=== PATIENT | female | born 1995 | race Hispanic/Latino ===

== ENCOUNTER 2021-10-20 17:00 | Observation (INO) | payer BC ==
[~2021-10-20] VITALS: Ht 160 cm; Wt 88.5 kg
[2021-10-20 17:02] VITALS: BP 162/102
[2021-10-20 18:14] LABS: APPEARANCE,URINE SL CLOUDY (CLEAR); BILIRUBIN,URINE NEGATIVE (NEGATIVE); COLOR,URINE YELLOW (YELLOW); GLUCOSE, URINE (UA) NEGATIVE (NEGATIVE); KETONES,URINE NEGATIVE (NEGATIVE); LEUKOCYTE ESTERASE ,URINE TRACE (NEGATIVE); NITRATE,URINE POSITIVE (NEGATIVE); OCCULT BLOOD,URINE NEGATIVE (NEGATIVE); PROTEIN,URINE NEGATIVE (NEGATIVE); UROBILINOGEN,URINE 0.2 mg/dL (0.2-1.0)
[2021-10-20 18:23] LABS: BACTERIA,URINE Moderate /HPF (None Seen); CALCIUM OXALATE CRYSTALS,UR Rare /LPF (None Seen); RBC,URINE 0-1 /HPF (0-1)
[2021-10-20 18:24] LABS: SQUAMOUS EPITHELIAL CELL,UR Few /HPF (0-2)
[2021-10-20] MEDS ORDERED: CEFTRIAXONE 1G VIAL IM ONE (19:30)
[2021-10-20] MEDS ORDERED: LIDOCAINE HCL MPF 1% 5ML VIAL IM SCH (20:00)
[2021-10-20] MEDS ORDERED: LIDOCAINE HCL MPF 1% 5ML VIAL ONE (20:03)
== END 2021-10-20 20:40 | disposition home or self-care (01) ==
LOC: EDH 17:00 → LDH 17:01
PROVIDERS: ADMIT Obstetrics & Gynecology; ATTEND Obstetrics & Gynecology
DX: O10.913 Unspecified pre-existing hypertension complicating pregnancy, third trimester (principal); Z3A.36 36 weeks gestation of pregnancy
CPT/HCPCS: 96372 ×2; 59025; 87077; 87088; 87186; 81001; 76819; G0378 ×3; J0696; J3490

== ENCOUNTER 2021-10-26 10:56 | Observation (INO) | payer BC ==
[~2021-10-26] VITALS: Ht 160 cm; Wt 135.6 kg
[2021-10-26 10:57] VITALS: BP 165/105
[2021-10-26] MEDS ORDERED: LACTATED RINGERS 1000ML 1,000 ML IV PRN (11:30)
[2021-10-26 11:58] LABS: BASOPHILS % (AUTO) 0.2 % (0.0-5.0); EOSINOPHILS % (AUTO) 0.7 % (0.0-8.0); HEMATOCRIT 34.1 % (36-48); LYMPHOCYTES % (AUTO) 31.4 % (21.0-51.0); MEAN CORPUSCULAR HEMOGLOBIN 28.4 pg (27.0-33.0); MEAN CORPUSCULAR HGB CONC 32.8 g/dL (32.0-36.0); MEAN CORPUSCULAR VOLUME 86.3 fL (79-99); MONOCYTES % (AUTO) 6.6 % (3.0-13.0); NEUTROPHILS % (AUTO) 60.7 % (40.0-77.0); PLATELET COUNT (AUTO) 259 K/uL (130-400); RED BLOOD CELL COUNT(AUTO) 3.95 MIL/uL (4.00-5.50); RED CELL DISTRIBUTION WIDTH 15.9 % (11.0-15.5); WHITE BLOOD COUNT (AUTO) 10.3 K/uL (4.8-10.8)
[2021-10-26 12:05] LABS: CREATININE 0.6 mg/dL (0.5-1.5); POTASSIUM 4.2 mmol/L (3.5-5.1)
[2021-10-26 12:10] LABS: ALBUMIN 2.2 g/dL (3.5-5.0); INR 0.93 (0.85-1.15); PROTHROMBIN TIME 9.4 SEC (9.6-11.6); TOTAL PROTEIN, SERUM 6.2 g/dL (6.0-8.3); URIC ACID 6.6 mg/dL (2.6-7.2)
[2021-10-26 12:11] LABS: PARTIAL THROMBOPLASTIN TIME 24.9 SEC (26.3-35.5)
[2021-10-26 12:14] LABS: APPEARANCE,URINE CLEAR (CLEAR); BILIRUBIN,URINE NEGATIVE (NEGATIVE); COLOR,URINE YELLOW (YELLOW); GLUCOSE, URINE (UA) NEGATIVE (NEGATIVE); KETONES,URINE NEGATIVE (NEGATIVE); LEUKOCYTE ESTERASE ,URINE NEGATIVE (NEGATIVE); NITRATE,URINE NEGATIVE (NEGATIVE); OCCULT BLOOD,URINE NEGATIVE (NEGATIVE); PROTEIN,URINE NEGATIVE (NEGATIVE); UROBILINOGEN,URINE 0.2 mg/dL (0.2-1.0)
== END 2021-10-26 14:30 | disposition home or self-care (01) ==
LOC: EDH 10:56 → LDH 10:57
PROVIDERS: ADMIT Obstetrics & Gynecology; ATTEND Obstetrics & Gynecology
DX: O14.93 Unspecified pre-eclampsia, third trimester (principal); Z3A.37 37 weeks gestation of pregnancy
CPT/HCPCS: 59025; 96360; 96361; 84550; 80053; 85025; 85384; 85610; 85730; 81003; 36415; 76819; 76805; G0378 ×3; G0379; J7120; A4351

== ENCOUNTER 2021-10-30 17:19 | Inpatient (IN) | payer BC ==
[~2021-10-30] VITALS: Ht 160 cm; Wt 136.1 kg
[2021-10-30] MEDS ORDERED: NALOXONE HCL 0.4 MG/1 ML ML IV PRN (17:30)
[2021-10-30] MEDS ORDERED: MEPERIDINE-PF 25 MG/ML SYG IVP PRN (17:30)
[2021-10-30] MEDS ORDERED: LACTATED RINGERS 500 ML 500 ML IV PRN (17:30)
[2021-10-30] MEDS ORDERED: EPHEDRINE SULFATE 50 MG/ML AMPULE IVP PRN (17:30)
[2021-10-30 18:10] LABS: APPEARANCE,URINE CLOUDY (CLEAR); BILIRUBIN,URINE NEGATIVE (NEGATIVE); COLOR,URINE YELLOW (YELLOW); GLUCOSE, URINE (UA) NEGATIVE (NEGATIVE); KETONES,URINE 5 mg/dL (NEGATIVE); LEUKOCYTE ESTERASE ,URINE TRACE (NEGATIVE); NITRATE,URINE NEGATIVE (NEGATIVE); OCCULT BLOOD,URINE NEGATIVE (NEGATIVE); PH,URINE 6.5 (5.0-8.0); PROTEIN,URINE 30 mg/dL (NEGATIVE); UROBILINOGEN,URINE 0.2 mg/dL (0.2-1.0)
[2021-10-30] MEDS: LACTATED RINGERS 1000ML 1,000 ML IV PRN (18:22)
[2021-10-30 18:24] LABS: BACTERIA,URINE Many /HPF (None Seen); RBC,URINE None Seen /HPF (0-1); SQUAMOUS EPITHELIAL CELL,UR Many /HPF (0-2)
[2021-10-30 18:50] LABS: BASOPHILS % (AUTO) 0.1 % (0.0-5.0); EOSINOPHILS % (AUTO) 0.5 % (0.0-8.0); HEMATOCRIT 32.4 % (36-48); MEAN CORPUSCULAR HGB CONC 33.3 g/dL (32.0-36.0); MEAN CORPUSCULAR VOLUME 87.1 fL (79-99); MONOCYTES % (AUTO) 5.8 % (3.0-13.0); NEUTROPHILS % (AUTO) 61.3 % (40.0-77.0); PLATELET COUNT (AUTO) 240 K/uL (130-400); RED BLOOD CELL COUNT(AUTO) 3.72 MIL/uL (4.00-5.50); WHITE BLOOD COUNT (AUTO) 9.7 K/uL (4.8-10.8)
[2021-10-30 18:58] LABS: INR 0.93 (0.85-1.15); PROTHROMBIN TIME 9.4 SEC (9.6-11.6)
[2021-10-30 19:03] LABS: CREATININE 0.7 mg/dL (0.5-1.5); POTASSIUM 4.4 mmol/L (3.5-5.1)
[2021-10-30 19:19] LABS: ALBUMIN 2.1 g/dL (3.5-5.0); TOTAL PROTEIN, SERUM 5.9 g/dL (6.0-8.3)
[2021-10-30] MEDS ORDERED: MISOPROSTOL 25 MCG TAB PO ONE (20:09)
[2021-10-30] MEDS: MISOPROSTOL 25 MCG TAB VG PRN (20:09)
[2021-10-30] MEDS ORDERED: LABETALOL HCL 200 MG TABLET PO SCH (21:00)
[2021-10-31] MEDS ORDERED: MISOPROSTOL 25 MCG TAB PO ONE (00:07)
[2021-10-31] MEDS: MISOPROSTOL 25 MCG TAB VG PRN (00:07)
[2021-10-31] MEDS: LACTATED RINGERS 1000ML 1,000 ML IV PRN (01:26)
[2021-10-31] MEDS ORDERED: HYDRALAZINE 20MG/ML VIAL ONE (02:24)
[2021-10-31] MEDS ORDERED: HYDRALAZINE 20MG/ML VIAL IV ONE ×2 (02:30→04:00)
[2021-10-31] MEDS ORDERED: MAGNESIUM 4GM PREMIX 100ML 100 ML IV ONE (03:35)
[2021-10-31] MEDS ORDERED: MAGNESIUM SULFATE 40GM/1000ML 1,000 ML IV ONE (03:35)
[2021-10-31] MEDS ORDERED: CALCIUM GLUC 1GM/10ML VIAL IV PRN (04:00)
[2021-10-31] MEDS ORDERED: CEFAZOLIN SODIUM 1 GM VIAL IVP PRN (04:00)
[2021-10-31] MEDS ORDERED: OXYTOCIN-LR 20 UNITS/1000 ML 1,000 ML IV SCH (04:00)
[2021-10-31] MEDS ORDERED: MAGNESIUM 4GM PREMIX 100ML 100 ML IV PRN ×2 (04:00→08:30)
[2021-10-31] MEDS ORDERED: MAGNESIUM SULFATE 40GM/1000ML 1,000 ML IV PRN ×2 (04:00→08:30)
[2021-10-31] MEDS ORDERED: LACTATED RINGERS 1000ML 1,000 ML IV SCH ×2 (04:00→08:30)
[2021-10-31] MEDS ORDERED: CALDOLOR 800MG+NS 250ML 250 ML IV PRN (05:30)
[2021-10-31] MEDS ORDERED: LABE200T7 PO (05:31)
[2021-10-31] MEDS ORDERED: CITRIC ACID/SODIUM CITRATE 30 ML UDCUP ONE (06:57)
[2021-10-31] MEDS ORDERED: FENTANYL CITRATE PF 50 MCG/1 ML 2ML VIAL ONE (06:58)
[2021-10-31] MEDS ORDERED: MORPHINE PF 100MG/10ML AMP IV ONE (06:58)
[2021-10-31] MEDS ORDERED: OXYTOCIN 10 USP UNITS/ML ONE (07:37)
[2021-10-31] MEDS ORDERED: ONDANSETRON 4MG INJ ONE (07:38)
[2021-10-31] MEDS ORDERED: CITRIC ACID/SODIUM CITRATE 30 ML UDCUP PO SCH (08:00)
[2021-10-31] MEDS ORDERED: PHENYLEPHRINE HCL 10 MG/ML 1ML VIAL IV ONE (08:09)
[2021-10-31] MEDS ORDERED: PROMETHAZINE HCL 25 MG/ML 1ML AMPULE IM PRN (08:30)
[2021-10-31] MEDS ORDERED: DEXTROSE 5 %-0.45 % NACL 1,000 ML IV PRN (08:30)
[2021-10-31] MEDS ORDERED: OXYTOCIN-LR 20 UNITS/1000 ML 1,000 ML IV PRN (08:30)
[2021-10-31] MEDS ORDERED: CALCIUM GLUC 1GM/10ML VIAL IVPB PRN (08:30)
[2021-10-31] MEDS ORDERED: 0.9%NACL 10ML VIAL IVP PRN (08:30)
[2021-10-31] MEDS ORDERED: NALOXONE HCL 0.4 MG/1 ML ML IVP PRN ×2 (09:30)
[2021-10-31] MEDS ORDERED: DiphenhydrAMINE HCL 50 MG/ML VIAL IVP PRN (09:30)
[2021-10-31] MEDS ORDERED: EPHEDRINE SULFATE 50 MG/ML AMPULE IVP PRN (09:30)
[2021-10-31] MEDS ORDERED: LORATADINE 10 MG TABLET PO PRN (09:30)
[2021-10-31] MEDS ORDERED: KETOROLAC 30MG VIAL (30MG/ML) IV PRN (09:30)
[2021-10-31] MEDS ORDERED: ONDANSETRON 4MG INJ IVP PRN (09:30)
[2021-10-31] MEDS ORDERED: MEPERIDINE-PF 25 MG/ML SYG IV PRN (09:30)
[2021-10-31] MEDS: MEPERIDINE-PF 75 MG/ML SYG IM PRN (13:09)
[2021-10-31] MEDS: PROMETHAZINE HCL 25 MG/ML 1ML AMPULE IM PRN (13:10)
[2021-10-31] MEDS: CALDOLOR 800MG+NS 250ML 250 ML IV PRN ×2 (15:53→23:37)
[2021-11-01] MEDS: MEPERIDINE-PF 75 MG/ML SYG IM PRN (05:26)
[2021-11-01] MEDS: PROMETHAZINE HCL 25 MG/ML 1ML AMPULE IM PRN (05:27)
[2021-11-01 06:35] LABS: HEMATOCRIT 32.3 % (36-48); MEAN CORPUSCULAR HEMOGLOBIN 28.6 pg (27.0-33.0); MEAN CORPUSCULAR HGB CONC 32.5 g/dL (32.0-36.0); RED BLOOD CELL COUNT(AUTO) 3.67 MIL/uL (4.00-5.50); RED CELL DISTRIBUTION WIDTH 16.4 % (11.0-15.5)
[2021-11-01] MEDS ORDERED: ACETAMINOPHEN 500 MG TABLET PO PRN (08:30)
[2021-11-01] MEDS ORDERED: MEASLES/MUMPS/RUBELLA VACCINE, LIVE 0.5 ML/VIAL SQ SCH (08:30)
[2021-11-01] MEDS ORDERED: DIPHENHYDRAMINE HCL 25 MG CAPSULE PO PRN (08:30)
[2021-11-01] MEDS ORDERED: ACETAMINOPHEN WITH CODEINE 1 TAB TAB PO PRN (08:30)
[2021-11-01] MEDS ORDERED: HYDROCODONE/ACETAMINOPHEN 5/325 MG TAB PO PRN (08:30)
[2021-11-01] MEDS ORDERED: DIPH,PERTUSS(ACELL),TET VAC/PF 0.5 ML VIAL IM SCH (08:30)
[2021-11-01] MEDS ORDERED: LANOLIN 30GM OINTMENT TP PRN (08:30)
[2021-11-01] MEDS: LABETALOL HCL 200 MG TABLET PO SCH ×2 (09:12→20:55)
[2021-11-01 11:03] VITALS: BP 121/66
[2021-11-01 15:53] VITALS: BP 114/76
[2021-11-01] MEDS: SIMETHICONE 80 MG TAB.CHEW PO PRN ×2 (15:53→20:50)
[2021-11-01] MEDS ORDERED: PREN1TAB80 PO (16:19)
[2021-11-01 19:31] VITALS: BP 115/85
[2021-11-01] MEDS: DOCUSATE SODIUM 100 MG CAP PO SCH ×2 (20:50→21:00)
[2021-11-01] MEDS: IBUPROFEN 600 MG TABLET PO PRN (20:51)
[2021-11-01 23:32] VITALS: BP 106/53
[2021-11-02] MEDS: IBUPROFEN 600 MG TABLET PO PRN (03:54)
[2021-11-02 03:55] VITALS: BP 142/82
[2021-11-02 07:20] VITALS: BP 138/87
[2021-11-02] MEDS: LABETALOL HCL 200 MG TABLET PO SCH (08:54)
[2021-11-02] MEDS: DOCUSATE SODIUM 100 MG CAP PO SCH (08:55)
[2021-11-02] MEDS: SIMETHICONE 80 MG TAB.CHEW PO PRN (08:55)
[2021-11-02 12:11] VITALS: BP 119/80
[2021-11-02] MEDS ORDERED: DOCU-116 PO (13:16)
[2021-11-02] MEDS ORDERED: IBUP-2077 PO (13:17)
[2021-11-02] MEDS ORDERED: ACET-2079 PO (13:18)
== END 2021-11-02 14:25 | disposition home or self-care (01) | DRG 788 ==
LOC: LDH 17:19 → WSH 11-01 11:00
PROVIDERS: ADMIT Obstetrics & Gynecology; ATTEND Obstetrics & Gynecology
PROC: 10D00Z1 Extraction of Products of Conception, Low, Open Approach (ICD-10-PCS; principal; 2021-10-31 07:29)
DX: O11.4 Pre-existing hypertension with pre-eclampsia, complicating childbirth (principal); O99.214 Obesity complicating childbirth; Z3A.38 38 weeks gestation of pregnancy; Z37.0 Single live birth; E66.01 Morbid (severe) obesity due to excess calories
CPT/HCPCS: 36415; 59510; 76805; 80053; 81001; 84550; 85025; 85027; 85384; 85610; 85730; 86592; 86850; 86900; 86901; 87088; 87340; 90715; A4344; G0378; J0360; J0690; J1741; J2175; J2274; J2370; J2405; J2550; J2590; J3010; J3475; J7120